=== PATIENT | male | born 1975 | race Caucasian/White ===

== ENCOUNTER 2017-03-22 11:20 | Emergency (ER) | payer BC ==
[~2017-03-22] VITALS: Ht 177.8 cm; Wt 78.2 kg
[2017-03-22 11:23] VITALS: TEMP 36.5; Ht 177.8 cm; Wt 78.2 kg
--- NOTE | 2017-03-22 12:02 | EMERGENCY ROOM VISIT NOTE ---
ED Visit Note First contact with patient: 11:41 CHIEF COMPLAINT: Finger laceration HISTORY OF PRESENT ILLNESS: This 41-year-old male patient presents to the emergency department ambulatory after injuring the right thumb. He was loading a shotgun and he states the slide caught his finger and avulsed the nail. He denies any true laceration. The bleeding has stopped. Denies weakness or numbness of the finger. The patient has full range of motion of the fingers. The patient denies any pain. The patient denies any other injuries. The patient' s tetanus shot is up to date. REVIEW OF SYSTEMS: A 6 system review of systems was completed with positives and pertinent negatives listed in the HPI. ALLERGIES: No known allergies MEDICATIONS: None PMH: None SOCIAL HISTORY: The patient lives locally. He does not smoke. PHYSICAL EXAM: Vital Signs: Reviewed Nurse's notes, vital signs stable. GENERAL : This is a 41-year-old male, in no acute distress, well developed, well nourished. SKIN: There is partial avulsion of the right thumbnail. There is no obvious bleeding. The edges gape apart with traction. There is no foreign material in the wound and it looks clean. No deep structures such as tendons, bones, or nerves are seen in the base of the wound. Extension and flexion of the finger is full and strong. Full range of motion of the wrist and other fingers. Capillary refill less than 2 seconds. Normal sensation to light and sharp touch. EMERGENCY DEPARTMENT COURSE: I examined the patient. Using sterile technique the wound was cleaned with Betadine. 6 ml of 1% buffered lidocaine/0.5% Marcaine was used to perform a digital block to anesthetize the patient. The area was sterilely draped. Once the patient was numb, the wound was copiously irrigated under pressure with sterile saline. The nail was removed. The nail was cleaned. There is no underlying nail bed laceration. The nail was replaced and sutured in place with 4 simple interrupted 4-0 nylon sutures. The patient tolerated the procedure well. The bleeding stopped. The area was cleaned with sterile saline and dressed with bacitracin ointment and bandage. The patient was discharged home in good condition. A splint was placed to help protect the fingernail. He was advised that the nail likely fall off and may or may not grow back. He was advised that it is possible it could grow back deformed. Problem List Medical Problems: (1) No known problems Status: Chronic Current/Historical Medications No Active Prescriptions or Reported Meds Allergies Coded Allergies: No Known Allergies (Unverified , 03/22/17) Vital Signs Date Time Temp Pulse Resp B/P Pulse Ox O2 Delivery O2 Flow Rate FiO2 03/22/17 13:36 60 16 124/80 100 03/22/17 11:23 36.5 66 18 133/84 100 Room Air Departure Information Impression Primary Impression: Nail avulsion Dispostion Home / Self-Care Condition GOOD Prescriptions No Active Prescriptions or Reported Meds Referrals Taurus Abel M.D. (PCP) Patient Instructions ED Avulsion Nail Complete, [facility] Additional Instructions Keep wound clean and dry. Do not allow any crusting or dried blood to accumulate on sutures. If this occurs, use a 1:1 solution of hydrogen peroxide/ water on a Q-tip to clean the wound. Use an antibiotic ointment for 3-4 days, then let wound dry. Suture removal in 10-12 days. Return sooner for any signs of infection (increasing redness, swelling, drainage). Ice and elevate for swelling and pain. Ibuprofen 600 mg every 6 hrs for pain. Keep covered when in sun until sutures removed then SPF 50 or higher for one year. Vitamin E oil if desired two weeks after suture removal for reduction of scar.
[2017-03-22] MEDS ORDERED: XYLOCAINE 1%/SOD BICARB 20 ML VIAL INFIL ONE (12:15)
[2017-03-22] MEDS ORDERED: BUPIVACAINE 0.5 % 5 MG/1 ML MPF 30ML VIAL INFIL ONE (12:15)
[2017-03-22 13:36] VITALS: BP 124/80; PULSE 60; O2SAT 100
== END 2017-03-22 13:37 | disposition home or self-care (01) ==
LOC: C.EDB 11:22 → C.EDD 13:37
DX: S61.101A Unspecified open wound of right thumb with damage to nail, initial encounter (principal); W22.8XXA Striking against or struck by other objects, initial encounter; Y93.89 Activity, other specified; Y99.8 Other external cause status

== ENCOUNTER → 2017-05-21 | Outpatient (CLI) | payer BC | END | disposition home or self-care (01) | LOC: C.PATHSPEC 17:04 | PROVIDERS: ATTEND Dentist Oral and Maxillofacial Surgery | DX: K14.8 Other diseases of tongue (principal); K12.39 Other oral mucositis (ulcerative); F17.220 Nicotine dependence, chewing tobacco, uncomplicated ==

== ENCOUNTER 2017-11-25 10:13 | Emergency (ER) | payer BC ==
[~2017-11-25] VITALS: Ht 177.8 cm; Wt 79.0 kg
[2017-11-25 10:17] VITALS: TEMP 37.6; Ht 177.8 cm; Wt 79.0 kg
[2017-11-25] MEDS ORDERED: SODIUM CHLORIDE 0.9% 1000ML 1,000 ML IV STA (11:12)
[2017-11-25 11:23] LABS: BASO % 0.4 %; BASO ABS # 0.03 K/uL (0-0.2); EOS % 3.8 %; HEMATOCRIT 43.9 % (42-52); HEMOGLOBIN 15.3 g/dL (14.0-18.0); IG# 0.06 K/uL (0.00-0.02); LYMPH % 18.2 %; LYMPH ABS # 1.44 K/uL (1.2-3.4); MEAN CELL VOLUME 94.4 fL (80-100); MEAN CORPUSCULAR HEMOGLOBIN 32.9 pg (25-34); MEAN CORPUSCULAR HGB CONC 34.9 g/dl (32-36); MEAN PLATELET VOLUME 9.5 fL (7.4-10.4); MONO % 6.3 %; NEUT % 70.5 %; PLATELET COUNT 357 K/uL (130-400); RED CELL DISTRIBUTION WIDTH CV 12.2 % (11.5-14.5); RED CELL DISTRIBUTION WIDTH SD 41.4 fL (36.4-46.3); WHITE BLOOD COUNT 7.93 K/uL (4.8-10.8)
[2017-11-25 11:34] LABS: BLOOD UREA NITROGEN 15 mg/dl (7-18); CREATININE 0.97 mg/dl (0.60-1.40); GLUCOSE 91 mg/dl (70-99)
[2017-11-25 11:35] LABS: ALT/SGPT 62 U/L (12-78); AST/SGOT 27 U/L (15-37); CALCIUM 9.3 mg/dl (8.5-10.1); CARBON DIOXIDE 29 mmol/L (21-32); POTASSIUM 4.2 mmol/L (3.5-5.1); SODIUM 136 mmol/L (136-145)
[2017-11-25 11:45] LABS: ALKALINE PHOSPHATASE 102 U/L (45-117); TOTAL PROTEIN 8.5 gm/dl (6.4-8.2)
--- NOTE | 2017-11-25 11:59 | DIAGNOSTIC IMAGING REPORT ---
CT HEAD WITHOUT CONTRAST (CT) CLINICAL HISTORY: dizziness COMPARISON STUDY: 09/18/2011 TECHNIQUE: Axial CT of the brain is performed from the vertex to the skull base. IV contrast was not administered for this examination. A dose lowering technique was utilized adhering to the principles of ALARA. CT DOSE: 690.05 mGycm FINDINGS: No intra or extra-axial mass lesions are visualized. There is no CT evidence of acute cortical infarction. There is no evidence of midline shift. There is no acute hemorrhage. No calvarial fractures are visualized. There is a tiny hypodensity within the right medial occipital lobe. This is not felt to be of acute clinical significance. This may represent partial volume averaging with a prominent sulcus. There is no evidence of pathologic ventricular dilatation. There is mild sphenoid sinus mucosal thickening. IMPRESSION: No acute intracranial findings Electronically signed by: Ahmet Leach M.D. 11/25/2017 11:57 AM Dictated Date/Time: 11/25/2017 11:56 AM
--- NOTE | 2017-11-25 14:28 | DIAGNOSTIC IMAGING REPORT ---
MRI OF THE BRAIN COMBO CLINICAL HISTORY: Dizziness. Blurry vision. COMPARISON STUDY: CT of the brain dated 11/25/2017 and MRI of the brain dated 10/14/2011. TECHNIQUE: MRI of the brain was performed utilizing various T1 and T2-weighted sequences in the axial, sagittal, and coronal planes. Contrast-enhanced sequences were acquired following the administration of 7.5 cc of Gadavist. FINDINGS: Brain parenchyma: The brain parenchyma is normal in appearance. There is no hemorrhage or mass effect. There is no restricted diffusion to suggest acute ischemia. No enhancing mass lesion is identified on the postcontrast images. Guallpa-white matter differentiation is preserved. No extra-axial fluid collection is seen. The cerebellar tonsils are normal in configuration. Ventricles, sulci, and cisterns: Normal in configuration. Pituitary and sella: Unremarkable. Intracranial vasculature: Normal flow voids are maintained at the skull base. Orbits: The bony orbits are grossly intact. Orbital contents are normal in appearance. Sinuses and mastoids: There is mild mucosal thickening in the right sphenoid sinus. Trace mucosal thickening is seen in the left maxillary antrum. A attention cyst is noted in the right maxillary antrum. The mastoid air cells are clear. Calvarium: Unremarkable. Cervical cord: Partially visualized cervical spinal cord is normal in morphology and signal intensity. IMPRESSION: No acute intracranial abnormality. Electronically signed by: Dandy Tipton M.D. 11/25/2017 2:27 PM Dictated Date/Time: 11/25/2017 2:22 PM
[2017-11-25] MEDS ORDERED: GADAVIST IV PRN (14:30)
--- NOTE | 2017-11-25 14:48 | EMERGENCY ROOM VISIT NOTE ---
History First contact with patient: 11:04 Chief Complaint: DIZZY Stated Complaint: DIZZINESS Nursing Triage Summary: c/o dizziness for several days that is intermittant with c/o joint pain pt is ambulatory to triage with a steady gait History of Present Illness The patient is a 41 year old male who presents to the Emergency Room via private vehicle accompanied by female with complaints of "dizziness". The patient states that last week he had what he believes was the flu, and this past Wednesday developed dizziness. He also has joint aches. He states it feels as though when he walks he is off balance. The room was not spinning. He does not feel like he is going to pass out. There is no recent tick bites, chest pain, shortness of breath other than a brief episode this morning, had this before. Review of Systems A complete 10-point Review of Systems was discussed with the patient, with pertinent positives and negatives listed in the History of Present Illness. All remaining Review of Systems questions can be considered negative unless otherwise specified. Past Medical/Surgical History Medical Problems: (1) No known problems Family History Heart disease Social History Smoking Status: Never Smoker Alcohol Use: none Drug Use: none Occupation Status: employed Current/Historical Medications Scheduled Methylprednisolone (Medrol Dosepak), 0 PO DAILY Scheduled PRN Meclizine Hcl (Meclizine Hcl), 1 TAB PO TID PRN for Dizziness or Vertigo Physical Exam Vital Signs Date Time Temp Pulse Resp B/P (MAP) Pulse Ox O2 Delivery O2 Flow Rate FiO2 11/25/17 15:26 77 18 119/75 99 11/25/17 13:50 73 16 103/63 11/25/17 12:27 80 11/25/17 11:25 68 16 116/65 74 119/77 73 120/74 11/25/17 10:17 37.6 72 16 127/84 99 Physical Exam VITAL SIGNS - Vital signs and nursing notes were reviewed. Stable. GENERAL -41-year-old male appearing his stated age who is in no acute distress. Communicates well with provider and answers questions appropriately. SKIN - Without rashes. No petechia or meningeal rash. HEAD - NC/AT. EYES - PERRL with EOMI bilaterally. Sclera anicteric. No nystagmus. EARS - No deformities of external structures noted on gross examination bilaterally. Right ear canal unremarkable, however the left TM does have what appears to be a small effusion behind it. NOSE - Midline and without cyanosis. No epistaxis or purulent drainage noted. MOUTH/OROPHARYNX - Without perioral cyanosis. NECK - Neck with FROM. Supple to palpation. No nuchal rigidity. LUNGS - Chest wall symmetric without accessory muscle use, intercostals retractions, or central cyanosis. Normal vesicular breath sounds CTA B/L. No wheezes, rales, or rhonchi appreciated. CARDIAC - RRR with S1/S2. No murmur, rubs, or gallops appreciated. EXTREMITIES - No clubbing or peripheral cyanosis. No pretibial edema present. +5 /5 strength noted in UE/LE bilaterally. NEUROLOGIC - Cranial nerves II through XII grossly intact. Sensory intact to light touch throughout. PSYCH - A&O, and cooperates fully with examiner. Pt is very pleasant and interacts well with examiner. Medical Decision & Procedures ER Provider Diagnostic Interpretation: CT HEAD WITHOUT CONTRAST (CT) CLINICAL HISTORY: dizziness COMPARISON STUDY: 09/18/2011 TECHNIQUE: Axial CT of the brain is performed from the vertex to the skull base. IV contrast was not administered for this examination. A dose lowering technique was utilized adhering to the principles of ALARA. CT DOSE: 690.05 mGycm FINDINGS: No intra or extra-axial mass lesions are visualized. There is no CT evidence of acute cortical infarction. There is no evidence of midline shift. There is no acute hemorrhage. No calvarial fractures are visualized. There is a tiny hypodensity within the right medial occipital lobe. This is not felt to be of acute clinical significance. This may represent partial volume averaging with a prominent sulcus. There is no evidence of pathologic ventricular dilatation. There is mild sphenoid sinus mucosal thickening. IMPRESSION: No acute intracranial findings Electronically signed by: Ahmet Leach M.D. 11/25/2017 11:57 AM Dictated Date/Time: 11/25/2017 11:56 AM MRI OF THE BRAIN COMBO CLINICAL HISTORY: Dizziness. Blurry vision. COMPARISON STUDY: CT of the brain dated 11/25/2017 and MRI of the brain dated 10/14/2011. TECHNIQUE: MRI of the brain was performed utilizing various T1 and T2-weighted sequences in the axial, sagittal, and coronal planes. Contrast-enhanced sequences were acquired following the administration of 7.5 cc of Gadavist. FINDINGS: Brain parenchyma: The brain parenchyma is normal in appearance. There is no hemorrhage or mass effect. There is no restricted diffusion to suggest acute ischemia. No enhancing mass lesion is identified on the postcontrast images. Guallpa-white matter differentiation is preserved. No extra-axial fluid collection is seen. The cerebellar tonsils are normal in configuration. Ventricles, sulci, and cisterns: Normal in configuration. Pituitary and sella: Unremarkable. Intracranial vasculature: Normal flow voids are maintained at the skull base. Orbits: The bony orbits are grossly intact. Orbital contents are normal in appearance. Sinuses and mastoids: There is mild mucosal thickening in the right sphenoid sinus. Trace mucosal thickening is seen in the left maxillary antrum. A attention cyst is noted in the right maxillary antrum. The mastoid air cells are clear. Calvarium: Unremarkable. Cervical cord: Partially visualized cervical spinal cord is normal in morphology and signal intensity. IMPRESSION: No acute intracranial abnormality. Electronically signed by: Dandy Tipton M.D. 11/25/2017 2:27 PM Dictated Date/Time: 11/25/2017 2:22 PM Laboratory Results 11/25/17 11:06 Red Blood Count 4.65, Mean Corpuscular Volume 94.4, Mean Corpuscular Hemoglobin 32.9, Mean Corpuscular Hemoglobin Concent 34.9, Mean Platelet Volume 9.5, Neutrophils (%) (Auto) 70.5, Lymphocytes (%) (Auto) 18.2, Monocytes (%) (Auto) 6.3, Eosinophils (%) (Auto) 3.8, Basophils (%) (Auto) 0.4, Neutrophils # (Auto) 5.60, Lymphocytes # (Auto) 1.44, Monocytes # (Auto) 0.50, Eosinophils # (Auto) 0.30, Basophils # (Auto) 0.03 11/25/17 11:06 Test 11/25/17 11:06 11/25/17 11:14 White Blood Count 7.93 K/uL (4.8-10.8) Red Blood Count 4.65 M/uL (4.7-6.1) Hemoglobin 15.3 g/dL (14.0-18.0) Hematocrit 43.9 % (42-52) Mean Corpuscular Volume 94.4 fL (80-100) Mean Corpuscular Hemoglobin 32.9 pg (25-34) Mean Corpuscular Hemoglobin Concent 34.9 g/dl (32-36) Platelet Count 357 K/uL (130-400) Mean Platelet Volume 9.5 fL (7.4-10.4) Neutrophils (%) (Auto) 70.5 % Lymphocytes (%) (Auto) 18.2 % Monocytes (%) (Auto) 6.3 % Eosinophils (%) (Auto) 3.8 % Basophils (%) (Auto) 0.4 % Neutrophils # (Auto) 5.60 K/uL (1.4-6.5) Lymphocytes # (Auto) 1.44 K/uL (1.2-3.4) Monocytes # (Auto) 0.50 K/uL (0.11-0.59) Eosinophils # (Auto) 0.30 K/uL (0-0.5) Basophils # (Auto) 0.03 K/uL (0-0.2) RDW Standard Deviation 41.4 fL (36.4-46.3) RDW Coefficient of Variation 12.2 % (11.5-14.5) Immature Granulocyte % (Auto) 0.8 % Immature Granulocyte # (Auto) 0.06 K/uL (0.00-0.02) Anion Gap 3.0 mmol/L (3-11) Est Creatinine Clear Calc Drug Dose 104.5 ml/min Estimated GFR () 112.7 Estimated GFR (Non- 97.3 BUN/Creatinine Ratio 15.0 (10-20) Calcium Level 9.3 mg/dl (8.5-10.1) Magnesium Level 2.1 mg/dl (1.8-2.4) Total Bilirubin 0.6 mg/dl (0.2-1) Aspartate Amino Transf (AST/SGOT) 27 U/L (15-37) Alanine Aminotransferase (ALT/SGPT) 62 U/L (12-78) Alkaline Phosphatase 102 U/L (45-117) Troponin I < 0.015 ng/ml (0-0.045) Total Protein 8.5 gm/dl (6.4-8.2) Albumin 4.0 gm/dl (3.4-5.0) Globulin 4.5 gm/dl (2.5-4.0) Albumin/Globulin Ratio 0.9 (0.9-2) Thyroid Stimulating Hormone (TSH) 1.090 uIu/ml (0.300-4.500) Lyme Disease IgG Antibody NEG (NEG) Lyme Disease IgM Antibody NEG (NEG) Urine Color DK YELLOW Urine Appearance CLEAR (CLEAR) Urine pH 5.5 (4.5-7.5) Urine Specific [place] 1.012 (1.000-1.030) Urine Protein NEG (NEG) Urine Glucose (UA) NEG (NEG) Urine Ketones NEG (NEG) Urine Occult Blood NEG (NEG) Urine Nitrite NEG (NEG) Urine Bilirubin NEG (NEG) Urine Urobilinogen NEG (NEG) Urine Leukocyte Esterase NEG (NEG) Urine Opiates Screen NEG (NEG) Urine Methadone, Qualitative NEG (NEG) Urine Barbiturates NEG (NEG) Urine Phencyclidine (PCP) Level NEG (NEG) Ur Amphetamine/Methamphetamine NEG (NEG) MDMA (Ecstasy) Screen NEG (NEG) Urine Benzodiazepines Screen NEG (NEG) Urine Cocaine Metabolite NEG (NEG) Urine Marijuana (THC) NEG (NEG) Medications Administered Medications (Trade) Dose Ordered Sig/Tristan Route Start Time Stop Time Status Last Admin Dose Admin Sodium Chloride 1,000 ml @ 999 mls/hr Q1H1M STAT IV 11/25/17 11:12 11/25/17 12:12 DC 11/25/17 11:20 999 MLS/HR Medical Decision Patient was seen and evaluated as above. He presents to us today with dizziness. He is nontoxic on exam. Bedside EKG reveals normal sinus rhythm, right bundle branch block and compared with previous no significant change was found. There is no chest pain. I suspect that he is likely experiencing labyrinthitis, left greater than right that occurred following his viral illness that he had last week. A CT was performed secondary to his persistent dizziness and does show a small hypodensity which then in my opinion as well as after discussing with the attending physician warranted an MRI of the patient's brain given his dizziness and abnormal CT of the head findings. MRI was normal without acute injury or incident. This further correlates with his clinical labyrinthitis. On his blood work, there is no concerning leukocytosis or anemia. Metabolic panel reveals no acute process. Drug screen negative. Urine negative. Lyme disease negative. His vital signs are stable. I will initiate a course of steroids and meclizine. He is to follow-up family doctor. He was educated upon management, educated upon worrisome symptoms in which to return, had questions about discharge, and was discharged home in good condition. In the evaluation and treatment of this patient, the following differential diagnoses were considered: Migraine Headache, Intracranial Hemorrhage, Subdural Hematoma, Subarachnoid Hemorrhage, Cerebral Aneurysm, Temporal/Giant Cell Arteritis, Tension Headache, Meningitis, Encephalitis, or Hydrocephalus. Impression Primary Impression: Dizziness Additional Impression: Acute labyrinthitis Departure Information Dispostion Home / Self-Care Condition GOOD Prescriptions Meclizine Hcl (MECLIZINE HCL) 25 Mg Tab 1 TAB PO TID Y for Dizziness or Vertigo for 10 Days, #30 TAB Prov: Pan Villavicencio PA-C 11/25/17 Methylprednisolone (MEDROL DOSEPAK) 4 Mg [place] 0 PO DAILY, #1 PKT Prov: Pan Villavicencio PA-C 11/25/17 Referrals Taurus Abel M.D. (PCP) Patient Instructions My [facility] Additional Instructions You were seen in the emergency department for dizziness and balance troubles At this time I suspect he likely experiencing labyrinthitis following an illness last week. This is best treated with a Medrol Dosepak and meclizine. You have been prescribed a Medrol Dosepak. Take this medication as prescribed. You should take the COMPLETE 6-day course of this medication. This is an anti- inflammatory medicine that will help to minimize your symptoms. The Medrol Dosepak as a steroid. The meclizine will help with the dizziness sensation. This is one tablet every 8 hours as needed for dizziness. You do not need to take this every 8 hours if you're not dizzy. Please call your family doctor to schedule follow-up. Please rest and stay well hydrated. Please return with any new/concerning symptoms. Problem Qualifiers
[2017-11-25] MEDS ORDERED: MECL1TAB42 PO (15:20)
[2017-11-25] MEDS ORDERED: METH4PAK PO (15:20)
[2017-11-25 15:26] VITALS: BP 119/75; PULSE 77; O2SAT 99
== END 2017-11-25 15:27 | disposition home or self-care (01) ==
LOC: C.EDB 10:13 → C.EDC 15:27
DX: R42 Dizziness and giddiness (principal); M25.50 Pain in unspecified joint; H83.03 Labyrinthitis, bilateral